=== PATIENT | female | born 1945 | race African-American/Black ===

== ENCOUNTER 2018-01-07 15:23 | Emergency (ER) | payer OTHER ==
[2018-01-07] MEDS ORDERED: NA CHLORIDE 0.9% 500 ML ONE (16:36)
--- NOTE | 2018-01-07 16:47 | RAD REPORT ---
EXAM DESCRIPTION: CT - Head Brain Wo Cont - 01/07/2018 4:37 pm CLINICAL HISTORY: SYNCOPE COMPARISON: No comparisons TECHNIQUE: All CT scans are performed using dose optimization technique as appropriate and may inclu de automated exposure control or mA/KV adjustment according to patient size. 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 The paranasal sinuses and mastoids are clear. The calvarium is intact. IMPRESSION: No acute intracranial abnormality. Areas of diminished density on the right are favored to represent sequela of previous trauma or infarcts. If patient has persistent or progressive clinic al findings, MR imaging could be performed for further evaluation.
[2018-01-07 17:17] LABS: Absolute Lymphocytes (CBC) 1.6 K/uL (0.7-4.9); Absolute Monocytes 0.6 K/uL (0.1-1.3); Absolute Neutrophil 4.7 K/uL (1.8-8.0); Basophils % 0.7 % (0-1.3); Eosinophils % 0.6 % (0-4.4); Hematocrit 36.5 % (36.0-45.0); Lymphocytes % 22.5 % (15.3-44.8); MCH 30.8 pg (27.0-35.0); MCV 91.3 fL (80-100); Monocytes % 9.1 % (3.3-12.3); RBC Red Blood Cell Count 3.99 M/uL (3.86-4.86)
[2018-01-07 17:56] LABS: Urine Blood NEGATIVE (NEG); Urine Glucose NEGATIVE (NEG); Urine Protein NEGATIVE (NEG)
[2018-01-07 18:00] LABS: Urine Bacteria >50 /HPF (<20); Urine Culture Reflex Order REFLEXED; Urine Mucus 1+ /HPF (NONE SEEN); Urine RBC <5 /HPF (NONE SEEN)
[2018-01-07 18:15] LABS: Magnesium 2.2 mg/dL (1.8-2.4); Potassium 4.1 mmol/L (3.5-5.1)
[2018-01-07] MEDS ORDERED: CEFTRIAXONE/SWI 1gm 1 GM/10 ML SYR ONE (18:38)
--- NOTE | 2018-01-07 18:40 | ER ---
Nurse's Notes [facility] Name: Karly Mercado Age: 72 yrs Sex: Female : 1945 Arrival Date: 01/07/2018 Time: 15:26 Bed 28 Private MD: Michelle Valera Diagnosis: Urinary tract infection, site not specified;Dehydration Presentation: 01/07 16:15 Presenting complaint: Patient states: " I passed out on Thu or when I was sitting ph on the porch so I went to the doctor yesterday and they amber some blood and they called me today and told me to come to the ER because some of my results were bad." Pt reports having urinary incontinence during syncopal episode, denies urinary symptoms at this time, lab results show elevated K+ and elevated BUN/Creatinine, pt denies pain, palpitations or SOB at thi time. Transition of care: patient was not received from another setting of care. Onset of symptoms was January 07, 2018. Risk Assessment: Do you want to hurt yourself or someone else? Patient reports no desire to harm self or others. Initial Sepsis Screen: Does the patient meet any 2 criteria? No. Patient's initial sepsis screen is negative. Does the patient have a suspected source of infection? No. Patient's initial sepsis screen is negative. Care prior to arrival: None. 16:15 Method Of Arrival: Ambulatory 16:15 Acuity: SUSHMA 3 ph Historical: - Allergies: 16:20 No Known Allergies; ph - PMHx: 16:20 Hypertension; PVD; ph - PSHx: 16:20 stents; ph - Immunization history:: Adult Immunizations unknown. - Social history:: Smoking status: Patient/guardian denies using tobacco. - Ebola Screening: : No symptoms or risks identified at this time. - Family history:: not pertinent. - Hospitalizations: : No recent hospitalization is reported. Screenin:23 Abuse screen: Denies threats or abuse. Denies injuries from another. Nutritional ph screening: No deficits noted. Tuberculosis screening: No symptoms or risk factors identified. Fall Risk None identified. Assessment: 16:30 General: Appears in no apparent distress. comfortable, slender, well groomed, Behavior ph is calm, cooperative, appropriate for age, Denies fever, feeling ill. Pain: Denies pain. Neuro: Level of Consciousness is awake, alert, obeys commands, Oriented to person, place, time, situation, Reports syncopal episode that occurred on . Denies weakness dizziness, headache. Cardiovascular: Denies chest pain, lightheadedness, nausea, shortness of breath, vomiting, Capillary refill < 3 seconds Patient's skin is warm and dry. Respiratory: Airway is patent Respiratory effort is even, unlabored. GI: No signs and/or symptoms were reported involving the gastrointestinal system. : Denies burning with urination, pain urinary frequency. Derm: Skin is intact, is healthy with good turgor, Skin is pink, warm \\T\\ dry. Musculoskeletal: Circulation, motion, and sensation intact. Range of motion: intact in all extremities. 17:52 Reassessment: Patient appears in no apparent distress at this time. Patient and/or ph family updated on plan of care and expected duration. Pain level reassessed. Patient is alert, oriented x 3, equal unlabored respirations, skin warm/dry/pink. Pt resting quietly, denies pain or nausea, awaiting lab results family at bedside. 18:48 Reassessment: Patient appears in no apparent distress at this time. Patient and/or ph family updated on plan of care and expected duration. Pain level reassessed. Patient is alert, oriented x 3, equal unlabored respirations, skin warm/dry/pink. Pt d/c home w/ daughter. Vital Signs: 16:19 BP 150 / 77; Pulse 71; Resp 18; Temp 97.9; Pulse Ox 98% on R/A; Weight 44.91 kg; Height ph 5 ft. 2 in. (157.48 cm); Pain 0/10; 17:30 BP 142 / 72; Pulse 70; Resp 16; Pulse Ox 99% on R/A; Pain 0/10; ph 18:49 BP 148 / 68; Pulse 78; Resp 18; Temp 98.0; Pulse Ox 99% on R/A; ph 16:19 Body Mass Index 18.11 (44.91 kg, 157.48 cm) ph ED Course: 15:26 Patient arrived in ED. as 15:27 Michelle Valera is Private Physician. as 16:01 Ray Galeano MD is Attending Physician. rn 16:15 Ada Noonan RN is Primary Nurse. ph 16:18 Triage completed. ph 16:23 Arm band placed on. ph 16:23 Patient has correct armband on for positive identification. Placed in gown. Bed in low ph position. Call light in reach. Side rails up X 1. noodle catalyst maker on. Pulse ox on. NIBP on. Warm blanket given. 16:[address] ut 16:36 CT completed. Patient tolerated procedure well. Patient moved back from CT. ut 16:37 CT Head Brain wo Cont In Process Unspecified. EDMS 16:49 EKG done, by instrument and electrical technician. reviewed by Ray Galeano MD. 3 18:49 No provider procedures requiring assistance completed. IV discontinued, intact, ph bleeding controlled, No redness/swelling at site. Pressure dressing applied. Administered Medications: 17:30 Drug: NS 0.9% 500 ml Route: IV; Rate: bolus; Site: left antecubital; ph 18:39 Follow up: Response: No adverse reaction; IV Status: Completed infusion ph 18:39 Drug: Rocephin - (cefTRIAXone) 1 grams Route: IVPB; Infused Over: 30 mins; Site: left ph antecubital; 18:39 Follow up: Response: No adverse reaction; IV Status: Completed infusion ph Outcome: 18:40 Discharge ordered by . rn 18:49 Discharged to home ambulatory, with family. ph 18:49 Condition: good 18:49 Discharge instructions given to patient, family, Instructed on discharge instructions, the need for admit, medication usage, Demonstrated understanding of instructions, follow-up care, medications, Prescriptions given X 1. 18:50 Patient left the ED. ph Addendum: 01/10/2018 18:45 Addendum: Culture Results: Positive urine culture. No further action required. Bacteria i w sensitive to prescribed antibiotic. Signatures: Dispatcher [employer] Grecia Manuel Irene, RN RN Ray Galeano MD MD rn Hall, Patricia, RN RN Darryn Vinson Shakira 3
--- NOTE | 2018-01-07 18:41 | EDPHYS ---
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 17:55 Sent in for evaluation, states she passed out 3 days ago, got lightheaded and passed rn out, saw her PCP next day, ordered bloodwork, got results today, shows high potassium and dehydration, patient currently asymptomatic, no further syncopal episodes. . Onset: The symptoms/episode began/occurred 3 day(s) ago. Severity of symptoms: At their worst the symptoms were mild in the emergency department the symptoms have resolved. The patient has not experienced similar symptoms in the past. The patient has been recently seen by a physician:. Historical: - Allergies: 16:20 No Known Allergies; ph - PMHx: 16:20 Hypertension; PVD; ph - PSHx: 16:20 stents; ph - Immunization history:: Adult Immunizations unknown. - Social history:: Smoking status: Patient/guardian denies using tobacco. - Ebola Screening: : No symptoms or risks identified at this time. - Family history:: not pertinent. - Hospitalizations: : No recent hospitalization is reported. ROS: 17:55 Constitutional: Negative for fever, chills, and weight loss, Eyes: Negative for injury, rn pain, redness, and discharge, Neck: Negative for injury, pain, and swelling, Cardiovascular: Negative for chest pain, palpitations, and edema, Respiratory: Negative for shortness of breath, cough, wheezing, and pleuritic chest pain, Abdomen/GI: Negative for abdominal pain, nausea, vomiting, diarrhea, and constipation, MS/Extremity: Negative for injury and deformity, Skin: Negative for injury, rash, and discoloration, Neuro: Negative for headache, weakness, numbness, tingling, and seizure. Exam: 17:55 Constitutional: This is a well developed, well nourished patient who is awake, alert, rn and in no acute distress. Head/Face: Normocephalic, atraumatic. Eyes: Pupils equal round and reactive to light, extra-ocular motions intact. Lids and lashes normal. Conjunctiva and sclera are non-icteric and not injected. Cornea within normal limits. Periorbital areas with no swelling, redness, or edema. Neck: Trachea midline, no thyromegaly or masses palpated, and no cervical lymphadenopathy. Supple, full range of motion without nuchal rigidity, or vertebral point tenderness. No Meningismus. Cardiovascular: Regular rate and rhythm with a normal S1 and S2. No gallops, murmurs, or rubs. Normal PMI, no JVD. No pulse deficits. Respiratory: Lungs have equal breath sounds bilaterally, clear to auscultation and percussion. No rales, rhonchi or wheezes noted. No increased work of breathing, no retractions or nasal flaring. Abdomen/GI: Soft, non-tender, with normal bowel sounds. No distension or tympany. No guarding or rebound. No evidence of tenderness throughout. MS/ Extremity: Pulses equal, no cyanosis. Neurovascular intact. Full, normal range of motion. Equal circumference. Neuro: Awake and alert, GCS 15, oriented to person, place, time, and situation. Cranial nerves II-XII grossly intact. Motor strength 5/5 in all extremities. Sensory grossly intact. Cerebellar exam normal. Vital Signs: 16:19 BP 150 / 77; Pulse 71; Resp 18; Temp 97.9; Pulse Ox 98% on R/A; Weight 44.91 kg; Height ph 5 ft. 2 in. (157.48 cm); Pain 0/10; 17:30 BP 142 / 72; Pulse 70; Resp 16; Pulse Ox 99% on R/A; Pain 0/10; ph 18:49 BP 148 / 68; Pulse 78; Resp 18; Temp 98.0; Pulse Ox 99% on R/A; ph 16:19 Body Mass Index 18.11 (44.91 kg, 157.48 cm) ph MDM: 16:01 Patient medically screened. rn 18:37 Differential Diagnosis UTI, spurious hyperkalemia, wrong lab results, dehydration. Data rn reviewed: vital signs, nurses notes, lab test result(s), EKG, radiologic studies, CT scan. 18:38 Counseling: I had a detailed discussion with the patient and/or guardian regarding: the rn historical points, exam findings, and any diagnostic results supporting the discharge/admit diagnosis, lab results, radiology results, the need for outpatient follow up, to return to the emergency department if symptoms worsen or persist or if there are any questions or concerns that arise at home. Response to treatment: the patient's condition has returned to base line, the patient is now symptom free, patient is well hydrated. and as a result, I will discharge patient. Special discussion: I discussed with the patient/guardian in detail that at this point there is no indication for admission to the hospital. It is understood, however, that if the symptoms persist or worsen the patient needs to return immediately for re-evaluation. 01/07 16:12 Order name: Urine Microscopic Only; Complete Time: 18:05 rn 01/07 16:12 Order name: Basic Metabolic Panel; Complete Time: 18:32 rn 01/07 16:12 Order name: CBC with Diff; Complete Time: 17:47 01/07 16:12 Order name: CPK; Complete Time: 18:32 01/07 16:12 Order name: Magnesium; Complete Time: 18:32 rn 01/07 16:12 Order name: Troponin (emerg Dept Use Only); Complete Time: 17:47 01/07 16:12 Order name: CT Head Brain wo Cont; Complete Time: 17:02 01/07 16:12 Order name: EKG; Complete Time: 16:13 01/07 16:12 Order name: Cardiac monitoring; Complete Time: 16:24 01/07 16:12 Order name: EKG - Nurse/Tech; Complete Time: 16:24 01/07 17:46 Order name: Urine Dipstick--Ancillary (enter results); Complete Time: 18:05 01/07 18:01 Order name: Urine Culture [facility] 01/07 16:12 Order name: IV Saline Lock; Complete Time: 17:52 rn 01/07 16:12 Order name: Labs collected and sent; Complete Time: 17:52 01/07 16:12 Order name: NPO; Complete Time: 16:24 rn 01/07 16:12 Order name: O2 Per Protocol; Complete Time: 16:24 rn 01/07 16:12 Order name: O2 Sat Monitoring; Complete Time: 16:24 rn 01/07 16:12 Order name: Urine Dipstick-Ancillary (obtain specimen); Complete Time: 17:52 rn Administered Medications: 17:30 Drug: NS 0.9% 500 ml Route: IV; Rate: bolus; Site: left antecubital; ph 18:39 Follow up: Response: No adverse reaction; IV Status: Completed infusion ph 18:39 Drug: Rocephin - (cefTRIAXone) 1 grams Route: IVPB; Infused Over: 30 mins; Site: left ph antecubital; 18:39 Follow up: Response: No adverse reaction; IV Status: Completed infusion ph Disposition: 01/07/18 18:40 Discharged to Home. Impression: Urinary tract infection, site not specified, Dehydration. - Condition is Stable. - Discharge Instructions: Dehydration, Adult, Urinary Tract Infection, Adult. - Prescriptions for cefpodoxime 100 mg Oral Tablet - take 2 tablet by ORAL route every 12 hours for 10 days take with food; 40 tablet. - Medication Reconciliation Form, Thank You Letter, Antibiotic Education, Prescription Opioid Use form. - Follow up: Private Physician; When: As needed; Reason: Recheck today's complaints, Re-evaluation by your physician. - Problem is new. - Symptoms have improved. Signatures: Dispatcher [employer] EDMS Ray Galeano MD MD rn Hall, Patricia, RN RN ph Corrections: (The following items were deleted from the chart) 18:50 18:40 01/07/2018 18:40 Discharged to Home. Impression: Urinary tract infection, site ph not specified; Dehydration. Condition is Stable. Forms are Medication Reconciliation Form, Thank You Letter, Antibiotic Education, Prescription Opioid Use. Follow up: Private Physician; When: As needed; Reason: Recheck today's complaints, Re-evaluation by your physician. Problem is new. Symptoms have improved. rn
--- NOTE | 2018-01-08 08:07 | EKG ---
Test Date: 2018-01-07 Test Time: 16:16:55 Optical Sales Associate: SELINA MEASUREMENT RESULTS: Intervals: Rate: 62 UT: 154 QRSD: 74 QT: 414 QTc: 420 [place]: P: 81 UT: 154 QRS: 28 T: 40 INTERPRETIVE STATEMENTS: Normal sinus rhythm Normal ECG No previous ECG available for comparison Electronically Signed On 01-08-18 08:03:24 CDT by Shalom Orellana
== END 2018-01-07 18:50 | disposition home or self-care (01) ==
LOC: ER 15:23
DX: N39.0 Urinary tract infection, site not specified (principal); E86.0 Dehydration; I10 Essential (primary) hypertension
CPT/HCPCS: 36415; 70450; 80048; 82550; 83735; 84484; 85025; 87077; 87086; 87088; 87186; 93005; 96361; 96374; 99285; J0696; 81003; 81015